=== PATIENT | male | born 1980 | race African-American/Black ===

== ENCOUNTER 2022-08-22 01:26 | Emergency (ER) | payer OTHER ==
[~2022-08-22] VITALS: Ht 160 cm; Wt 54.4 kg
[2022-08-22 03:55] VITALS: BP 134/90; TEMP 98.1
== END 2022-08-22 04:00 | disposition home or self-care (01) ==
LOC: ED 01:26
PROC: 0HQGXZZ Repair Left Hand Skin, External Approach (ICD-10-PCS; principal; 2022-08-22)
DX: S61.412A Laceration without foreign body of left hand, initial encounter (principal); W55.49XA Other contact with pig, initial encounter; Y92.89 Other specified places as the place of occurrence of the external cause
CPT/HCPCS: 90471; 90715; 96372; 99283; J0696; J2175; J2405